=== PATIENT | female | born 1990 | race Caucasian/White ===

== ENCOUNTER 2017-02-06 10:57 | Emergency (ER) | payer OTHER ==
[~2017-02-06] VITALS: Ht 157.5 cm; Wt 48.4 kg
[~2017-02-06 10:57] MED LIST changes: -ASPI1TAB PO; -PLAV1TAB2 PO
[2017-02-06] MEDS ORDERED: PLAV1TAB2 PO (13:32)
[2017-02-06] MEDS ORDERED: ASPI1TAB PO (13:34)
[2017-02-06 13:47] VITALS: BP 124/86
[2017-02-06] MEDS ORDERED: CLOPIDOGREL 75 MG TAB PO ONE (14:15)
== END 2017-02-06 13:48 | disposition home or self-care (01) ==
LOC: M ED 10:57
DX: I73.00 Raynaud's syndrome without gangrene (principal); Z72.0 Tobacco use

== ENCOUNTER → 2017-02-06 | Outpatient (CLI) | payer OTHER ==
[~2017-02-06] MED LIST: ACET50TA PO; ASPI1TAB PO; IBUP80TA PO; PLAV1TAB2 PO
--- NOTE | 2017-02-06 10:32 | REP ---
Right thumb four views: Comparison is a right hand study of 09/15/2012: There is no fracture or dislocation. Mineralization and joint spaces are normal. There are no calcifications or foreign bodies. Impression: Negative right thumb . Signed by Dami Mina MD 02/06/2017 10:24 A
== END ==
LOC: M WUC 08:00
PROVIDERS: ATTEND Physician Assistant
DX: M79.644 Pain in right finger(s) (principal)

== ENCOUNTER → 2017-03-01 | Outpatient (CLI) | payer OTHER ==
[~2017-03-01] MED LIST changes: +ASPI1TAB PO; +PLAV1TAB2 PO
--- NOTE | 2017-03-01 13:32 | REP ---
RIGHT UPPER EXTREMITY DUPLEX DOPPLER ARTERIAL ULTRASOUND: Real-time ultrasound evaluation and duplex Doppler interrogation of the right upper extremity arterial system is performed. I do not see significant plaquing or narrowing, with no compelling duplex Doppler sonographic evidence of hemodynamically significant stenosis of any of the arteries of the right upper extremity. Right distal subclavian artery peak systolic velocity 125.6 cm/s, triphasic wave form with diameter 6 mm. Right axillary artery peak systolic velocity 65.9 cm/s, triphasic wave form with diameter 3 mm. Right brachial artery peak systolic velocity is seen distally 106.8 cm/s, monophasic wave form with diameter 4 mm. Right radial artery peak systolic velocity greatest at the wrist 78.5 cm/s with monophasic wave form and diameter 3 mm. Right ulnar artery peak systolic velocity is seen proximally 69.3 cm/s with triphasic wave form and diameter 3 mm. Signed by Dami Kauffman MD 03/02/2017 11:27 A
== END ==
LOC: M RAD 11:20
PROVIDERS: ATTEND Surgery Vascular Surgery
DX: I73.9 Peripheral vascular disease, unspecified (principal)

== ENCOUNTER → 2017-03-29 | Outpatient (CLI) | payer OTHER ==
[~2017-03-29] MED LIST changes: +HEPARIN 1,000 UNITS/ML 10ML VIAL (FOR RADIOLOGY& DIALYSIS ONLY) As Ordered ONE; +ISOVUE-300 61% 50ML VIAL (Q9967) As Ordered ONE; +MIDAZOLAM INJ 2 MG/2 ML VIAL (J2250) As Ordered ONE; +PROTAMINE SULF INJ 50 MG/5 ML VIAL (J2720) As Ordered ONE; +fentaNYL 100 MCG/2 ML INJECTION (J3010) As Ordered ONE
[2017-03-29 10:28] LABS: BASO % 0.5 % (0.0-1.0); EOS # 0.3 10^3/uL (0.0-0.50); EOS % 6.7 % (0.0-3.0); LYMPH % 46.2 % (24.0-44.0); MEAN CORPUSCULAR HEMOGLOBIN 29.5 pg (27.0-33.0); MEAN CORPUSCULAR HGB CONC 33.5 g/dl (32.0-36.5); MONO # 0.4 10^3/uL (0.0-0.8); MONO % 8.8 % (0.0-5.0); NEUTROPHILS # 1.6 10^3/uL (1.8-7.7); NEUTROPHILS % 37.8 % (36.0-66.0); PLATELET COUNT, AUTOMATED 388 10^3/uL (150-450); RED CELL DISTRIBUTION WIDTH 12.4 % (11.5-14.5); WHITE BLOOD COUNT 4.3 10^3/uL (4.0-10.0)
[2017-03-29 10:44] LABS: INR 1.21
[2017-03-29 10:47] LABS: ERYTHROCYTE SEDIMENTATION RATE 24 mm/hr (0-20)
[2017-03-29 11:20] LABS: COMPLEMENT C3 109 MG/DL (90-180); COMPLEMENT C4 23.7 MG/DL (10-40)
--- NOTE | 2017-04-06 15:05 | REPIR ---
DATE OF PROCEDURE: 03/29/2017 ATTENDING SURGEON: Dr. Herrera Zuniga ASSISTANTS: Beatriz Kenney and Florencia Cabrera PREOPERATIVE DIAGNOSES: Right thumb ischemia, tobacco use, drug abuse. POSTOPERATIVE DIAGNOSES: Right thumb ischemia, tobacco use, drug abuse. PROCEDURE: Ultrasound-guided right brachial artery cannulation, right subclavian artery catheter placement with angiogram and runoff. INDICATION: Patient is a 26-year-old female with ischemia and pain in the right thumb with decreased pulses in the radial and ulnar distributions. Patient will undergo an angiogram with possible angioplasty and stent. Risks, benefits, and alternative treatment options were discussed with the patient. ANESTHESIA: Local with 6.5 mL of 2% lidocaine. FLUOROSCOPY TIME: 0.1 minutes. CONTRAST: 3 mL. HEPARIN: None. COMPLICATIONS: None. DRAINS: None. SPECIMENS: None. IMPLANTS: None. PROCEDURE: Patient was taken to the angiography suite, placed flat on the angiography room table, and the right upper extremity was prepped and draped in the standard surgical fashion. The ultrasound was used to guide cannulation of the right brachial artery with real-time concurrent visualization of the entry of the micropuncture needle into the brachial artery under ultrasound guidance with a hard copy image preserved. The brachial artery was noted to be widely patent, easily compressible, free of thrombus or any kind of calcifications or obstructive disease. The catheter was placed in the subclavian artery and an angiogram performed showing no abnormalities. The vessels were small in the forearm but widely patent. Catheters and wires removed and manual compression was applied at the puncture site for hemostasis. Dressings were then applied. Patient tolerated the procedure well. All instrument, sponge, and needle counts were correct at the end of the case. There were no complications. Dr. Zuniga was present for and directed the entire case. Patient was transferred to the holding area and subsequently discharged in stable condition. RADIOLOGIC SUPERVISION AND INTERPRETATION: Ultrasound was used to guide cannulation. The catheter was placed in the subclavian artery and an angiogram performed showing no intervention required.
== END | disposition home or self-care (01) ==
LOC: M IRPRO 07:38
PROVIDERS: ATTEND Surgery Vascular Surgery
DX: I99.8 Other disorder of circulatory system (principal); M79.644 Pain in right finger(s); Z72.0 Tobacco use; F19.10 Other psychoactive substance abuse, uncomplicated
CPT/HCPCS: 36120; 36415; 75710; 75774; 76937; 85025; 85610; 85613; 85652; 85730; 86038; 86140; 86160; 86256; 86431; 86704; 86803; C1894; Q9967

== ENCOUNTER → 2017-12-26 | Outpatient (CLI) | payer OTHER | LOC: M OUTALCOH 07:57 | DX: F11.20 Opioid dependence, uncomplicated (principal) ==

== ENCOUNTER 2018-01-10 13:29 | Outpatient (RCR) | payer OTHER | END 2018-01-15 | LOC: M OUTALCOH 13:29 | DX: F11.20 Opioid dependence, uncomplicated (principal) ==

== ENCOUNTER 2020-05-24 13:27 | Emergency (ER) | payer OTHER, MEDICARE, MEDICAID ==
[~2020-05-24] VITALS: Ht 157.5 cm; Wt 56.8 kg
[~2020-05-24 13:27] MED LIST changes: -ACET50TA PO; -ASPI1TAB PO; +ASPI81TA26 PO; -HEPARIN 1,000 UNITS/ML 10ML VIAL (FOR RADIOLOGY& DIALYSIS ONLY) As Ordered ONE; -ISOVUE-300 61% 50ML VIAL (Q9967) As Ordered ONE; +MAPA500T2 PO; -MIDAZOLAM INJ 2 MG/2 ML VIAL (J2250) As Ordered ONE; -PROTAMINE SULF INJ 50 MG/5 ML VIAL (J2720) As Ordered ONE; -fentaNYL 100 MCG/2 ML INJECTION (J3010) As Ordered ONE
[2020-05-24] MEDS ORDERED: SUBO8MIS PO (13:35)
[2020-05-24] MEDS ORDERED: MELO15TA28 PO (13:35)
[2020-05-24] MEDS ORDERED: AMIT-253 PO (13:35)
[2020-05-24] MEDS ORDERED: AMLO1TAB24 PO (13:35)
[2020-05-24] MEDS ORDERED: BOOSTRIX/ADACEL VACCINE (DIPHTH/PERTUSS/ACELL/TETANUS) 0.5ML SYR IM ONE (14:30)
[2020-05-24] MEDS ORDERED: ACETAMINOPHEN 500 MG TAB PO ONE (14:30)
[2020-05-24 14:47] LABS: URINE PREG TEST NEGATIVE (NEGATIVE)
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
[2020-05-24 16:28] LABS: BASO % 0.7 % (0.0-1.0); EOS # 0.2 10^3/uL (0.0-0.5); EOS % 4.8 % (0.0-3.0); HEMATOCRIT 39.6 % (36.0-47.0); HEMOGLOBIN 12.4 g/dl (12.0-15.5); LYMPH % 46.5 % (24.0-44.0); MEAN CORPUSCULAR HGB CONC 31.3 g/dl (32.0-36.5); MEAN CORPUSCULAR VOLUME 92.5 fl (80.0-96.0); MONO # 0.3 10^3/uL (0.0-0.8); MONO % 7.3 % (0.0-5.0); NEUTROPHILS # 1.8 10^3/uL (1.5-8.5); NEUTROPHILS % 40.7 % (36.0-66.0); PLATELET COUNT, AUTOMATED 273 10^3/uL (150-450); RED BLOOD COUNT 4.28 10^6/uL (4.00-5.40); WHITE BLOOD COUNT 4.4 10^3/uL (4.0-10.0)
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
[2020-05-24 16:46] LABS: BLOOD UREA NITROGEN 13 MG/DL (7-18); CALCIUM LEVEL 9.4 MG/DL (8.5-10.1); CARBON DIOXIDE LEVEL 22 MEQ/L (21-32); CHLORIDE LEVEL 108 MEQ/L (98-107); CK-MB VALUE MASS 1.7 NG/ML (<3.6); CPK CREATINE PHOSPHOKINASE 73 U/L (26-192); CREATININE FOR GFR 0.61 MG/DL (0.55-1.30); GLOMERULAR FILTRATION RATE > 60.0 (>60); GLUCOSE, FASTING 87 MG/DL (70-100); MB/CK RELATIVE INDEX 2.33 (< OR =4); POTASSIUM SERUM 4.6 MEQ/L (3.5-5.1); SODIUM LEVEL 138 MEQ/L (136-145); TROPONIN I < 0.02 NG/ML (< 0.10)
[2020-05-24] MEDS ORDERED: ONDA4TAB6 PO (17:07)
[2020-05-24 17:17] VITALS: BP 117/64
== END 2020-05-24 17:17 | disposition home or self-care (01) ==
LOC: M ED 13:27
DX: S06.0X0A Concussion without loss of consciousness, initial encounter (principal); S13.4XXA Sprain of ligaments of cervical spine, initial encounter; V43.52XA Car driver injured in collision with other type car in traffic accident, initial encounter; Y92.9 Unspecified place or not applicable; Y93.9 Activity, unspecified; Y99.9 Unspecified external cause status; I10 Essential (primary) hypertension; I73.00 Raynaud's syndrome without gangrene; F17.200 Nicotine dependence, unspecified, uncomplicated; Z79.899 Other long term (current) drug therapy

== ENCOUNTER → 2021-02-18 | Outpatient (CLI) | payer MEDICARE, MEDICAID ==
[~2021-02-18] MED LIST changes: +AMIT-253 PO; +AMLO1TAB24 PO; +GASTROGRAFIN SOLUTION 30ML (Q9963) As Ordered ONE; +ISOVUE-370 76% 100ML VIAL As Ordered ONE; +MELO15TA28 PO; +ONDA4TAB6 PO; +SUBO8MIS PO
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
== END ==
LOC: M RAD 02-17 14:32
PROVIDERS: ATTEND Nurse Practitioner
DX: R10.31 Right lower quadrant pain (principal)
CPT/HCPCS: 74176; Q9963

== ENCOUNTER → 2021-07-03 | Outpatient (CLI) | payer MEDICARE, MEDICAID ==
[~2021-07-03] MED LIST changes: -GASTROGRAFIN SOLUTION 30ML (Q9963) As Ordered ONE; -ISOVUE-370 76% 100ML VIAL As Ordered ONE
== END ==
LOC: M WHC 10:02
PROVIDERS: ATTEND Obstetrics & Gynecology
DX: O09.32 Supervision of pregnancy with insufficient antenatal care, second trimester (principal); Z3A.23 23 weeks gestation of pregnancy

== ENCOUNTER → 2021-08-11 | Outpatient (REF) | payer MEDICARE, MEDICAID | LOC: M PLALAB 13:43 | PROVIDERS: ATTEND Advanced Practice Midwife | DX: Z34.93 Encounter for supervision of normal pregnancy, unspecified, third trimester (principal); Z53.9 Procedure and treatment not carried out, unspecified reason ==

== ENCOUNTER → 2021-10-14 | Outpatient (REF) | payer MEDICARE, MEDICAID | LOC: M SFHCWAGY 17:04 | PROVIDERS: ATTEND Obstetrics & Gynecology | DX: Z36.89 Encounter for other specified antenatal screening (principal) ==

== ENCOUNTER → 2022-02-23 | Outpatient (CLI) | payer MEDICARE, MEDICAID ==
[~2022-02-23] MED LIST changes: +ACET-683 PO; +BUPR8SUB SL; +CLOP75TA99 PO; +ISOVUE-370 76% 100ML VIAL As Ordered ONE; -PLAV1TAB2 PO; +TUMS500C PO
== END ==
LOC: M RAD 11:33
PROVIDERS: ATTEND Nurse Practitioner
DX: M62.81 Muscle weakness (generalized) (principal)